=== PATIENT | male | born 1985 | race Caucasian/White ===

== ENCOUNTER 2016-07-12 16:22 | Emergency (ER) | payer SELFPAY ==
[~2016-07-12] VITALS: Ht 170.2 cm; Wt 70.0 kg
[2016-07-12] MEDS ORDERED: BACITRACIN ZINC OINT UDPKT TOP ONE (17:45)
[2016-07-12 19:03] VITALS: BP 140/81
== END 2016-07-12 19:06 | disposition home or self-care (01) ==
LOC: ER 16:23
DX: S00.81XA Abrasion of other part of head, initial encounter (principal); S80.212A Abrasion, left knee, initial encounter; R11.2 Nausea with vomiting, unspecified; Y08.89XA Assault by other specified means, initial encounter; Y93.89 Activity, other specified; Y92.89 Other specified places as the place of occurrence of the external cause; Y99.8 Other external cause status
CPT/HCPCS: 70450; 99284; A4217